=== PATIENT | female | born 1990 | race Caucasian/White ===

== ENCOUNTER 2019-07-09 21:57 | Emergency (ER) | payer MEDICAID ==
[~2019-07-09] VITALS: Ht 162.6 cm; Wt 50.3 kg
[2019-07-09 22:09] VITALS: BP 128/72; Ht 162.6 cm; Wt 50.3 kg
== END 2019-07-10 01:01 | disposition left against medical advice (07) ==
LOC: ED 21:57
DX: Z53.21 Procedure and treatment not carried out due to patient leaving prior to being seen by health care provider (principal)

== ENCOUNTER 2019-07-10 10:43 | Emergency (ER) | payer MEDICAID ==
[~2019-07-10] VITALS: Ht 162.6 cm; Wt 50.8 kg
[2019-07-10 10:47] VITALS: Ht 162.6 cm; Wt 50.8 kg
[2019-07-10 13:27] VITALS: BP 105/61
== END 2019-07-10 13:27 | disposition home or self-care (01) ==
LOC: ED 10:43
DX: R51 Headache (principal)